=== PATIENT | female | born 1950 | race Caucasian/White ===

== ENCOUNTER → 2016-12-14 | Outpatient (CLI) | payer BC ==
[~2016-12-14] MED LIST: AMLO-110 PO; ASCA500 PO; ASPEC325 PO; CHOL2000 PO; CYAN100020 PO; FRRG PO; MELO15TA4 PO; OMEG10007 PO; RANI150T3 PO; ZINC50TA3 PO
[2016-12-14 13:10] LABS: CALCIUM 9.7 mg/dl (8.5-10.1)
[2016-12-14 13:14] LABS: BLOOD UREA NITROGEN 17 mg/dl (7-18); BUN/CREATININE RATIO 22.8 (10-20); CARBON DIOXIDE 28 mmol/L (21-32); CHLORIDE 105 mmol/L (98-107); CHOLESTEROL 169 mg/dl (0-200); CREATININE 0.75 mg/dl (0.60-1.20); GLUCOSE 90 mg/dl (70-99); POTASSIUM 4.1 mmol/L (3.5-5.1); SODIUM 142 mmol/L (136-145); TRIGLYCERIDES 190 mg/dl (0-150); VERY LOW DENSITY LIPOPROT CALC 38 mg/dl
[2016-12-14 13:20] LABS: CHOLESTEROL/HDL RATIO 3.5; HDL CHOLESTEROL 48 mg/dl; LDL CHOLESTEROL CALCULATED 83 mg/dl
== END | disposition home or self-care (01) ==
LOC: C.LABPBG 09:35
PROVIDERS: ATTEND Internal Medicine
DX: I10 Essential (primary) hypertension (principal); E78.5 Hyperlipidemia, unspecified

== ENCOUNTER → 2017-06-08 | Outpatient (CLI) | payer BC ==
--- NOTE | 2017-06-08 15:17 | MAMMOGRAPHY REPORT ---
BILATERAL DIGITAL SCREENING MAMMOGRAM WITH CAD: 06/08/2017 CLINICAL HISTORY: Routine screening. TECHNIQUE: Bilateral CC, MLO and repeat right MLO views were obtained. Current study was also evalua kurt with a Computer Aided Detection (CAD) system. COMPARISON: Comparison is made to exams dated: 06/02/2016 mammogram, 05/31/2015 mammogram, 4 mammogram, 05/24/2013 mammogram, 04/27/2012 mammogram, and 04/22/2011 mammogram - [facility]. BREAST COMPOSITION: The tissue of both breasts is almost entirely fatty. FINDINGS: There are benign coarse calcifications in the medial right breast. No suspicious mass, arc hitectural distortion or cluster of microcalcifications is seen. IMPRESSION: ACR BI-RADS CATEGORY 1: NEGATIVE There is no mammographic evidence of malignancy. A 1 year screening mammogram is recommended. The pa tient will receive written notification of the results. Approximately 10% of breast cancers are not detected with mammography. A negative mammographic report should not delay biopsy if a clinically suggestive mass is present. Ada Robin M.D. ay/:06/08/2017 14:04:57 [employer]sembler Installer General: Jaye LEWIS(R)(M), [facility] letter sent: Normal 1/2 BI-RADS Code: ACR BI-RADS Category 1: Negative
== END | disposition home or self-care (01) ==
LOC: C.MAMM 10:26
PROVIDERS: ATTEND Obstetrics & Gynecology
DX: Z12.31 Encounter for screening mammogram for malignant neoplasm of breast (principal)

== ENCOUNTER → 2017-12-13 | Outpatient (CLI) | payer BC ==
[~2017-12-13] MED LIST changes: +MELO-84 PO; -MELO15TA4 PO
[2017-12-13 14:55] LABS: AST/SGOT 20 U/L (15-37); BLOOD UREA NITROGEN 18 mg/dl (7-18); CALCIUM 9.6 mg/dl (8.5-10.1); CARBON DIOXIDE 25 mmol/L (21-32); CREATININE 0.79 mg/dl (0.60-1.20); GLUCOSE 94 mg/dl (70-99); POTASSIUM 4.1 mmol/L (3.5-5.1); SODIUM 139 mmol/L (136-145)
[2017-12-13 14:59] LABS: ALT/SGPT 25 U/L (12-78); CHOLESTEROL 194 mg/dl (0-200); LDL CHOLESTEROL CALCULATED 103 mg/dl
== END | disposition home or self-care (01) ==
LOC: C.LABPBG 09:02
PROVIDERS: ATTEND Internal Medicine
DX: E78.5 Hyperlipidemia, unspecified (principal); I10 Essential (primary) hypertension

== ENCOUNTER → 2018-04-08 | Outpatient (CLI) | payer BC ==
[~2018-04-08] MED LIST changes: -AMLO-110 PO; +AMLO5TAB3 PO; -ASPEC325 PO; -FRRG PO; -OMEG10007 PO
[2018-04-08 17:16] LABS: BASO % 0.8 %; BASO ABS # 0.05 K/uL (0-0.2); EOS % 1.4 %; EOS ABS # 0.09 K/uL (0-0.5); HEMATOCRIT 42.4 % (37-47); HEMOGLOBIN 13.6 g/dL (12.0-16.0); IG# 0.01 K/uL (0.00-0.02); LYMPH % 28.6 %; MEAN CELL VOLUME 96.1 fL (80-100); MEAN CORPUSCULAR HEMOGLOBIN 30.8 pg (25-34); MEAN CORPUSCULAR HGB CONC 32.1 g/dl (32-36); MEAN PLATELET VOLUME 10.8 fL (7.4-10.4); MONO % 12.1 %; MONO ABS # 0.76 K/uL (0.11-0.59); NEUT % 56.9 %; NEUT ABS # 3.59 K/uL (1.4-6.5); PLATELET COUNT 290 K/uL (130-400); RED CELL DISTRIBUTION WIDTH CV 13.6 % (11.5-14.5); RED CELL DISTRIBUTION WIDTH SD 47.8 fL (36.4-46.3)
[2018-04-08 17:56] LABS: ALBUMIN 3.9 gm/dl (3.4-5.0); ALKALINE PHOSPHATASE 77 U/L (45-117); ALT/SGPT 24 U/L (12-78); AST/SGOT 19 U/L (15-37); BLOOD UREA NITROGEN 15 mg/dl (7-18); CALCIUM 9.3 mg/dl (8.5-10.1); CARBON DIOXIDE 26 mmol/L (21-32); GLUCOSE 90 mg/dl (70-99); POTASSIUM 3.7 mmol/L (3.5-5.1); SODIUM 141 mmol/L (136-145); TOTAL PROTEIN 7.9 gm/dl (6.4-8.2)
== END | disposition home or self-care (01) ==
LOC: C.LAB 16:09
PROVIDERS: ATTEND Internal Medicine
DX: R19.7 Diarrhea, unspecified (principal)